=== PATIENT | male | born 1980 | race Caucasian/White ===

== ENCOUNTER 2017-12-23 15:38 | Emergency (ER) | payer MEDICAID ==
[~2017-12-23] VITALS: Ht 182.9 cm; Wt 68.0 kg
[~2017-12-23 15:38] MED LIST: BAC10T PO; CLON-527 PO; DES150T PO; GABA-341 PO; NORCO10T PO; ONDA4TAB6 PO; TRAM50TA2 PO
[2017-12-23 15:41] VITALS: BP 145/84
[2017-12-23] MEDS ORDERED: CLIN150C2 PO (15:57)
== END 2017-12-23 16:16 | disposition home or self-care (01) ==
LOC: ER 15:39
DX: K04.7 Periapical abscess without sinus (principal); F15.10 Other stimulant abuse, uncomplicated; G89.29 Other chronic pain; F17.210 Nicotine dependence, cigarettes, uncomplicated; Z87.442 Personal history of urinary calculi; Z56.0 Unemployment, unspecified; Z88.0 Allergy status to penicillin; Z79.899 Other long term (current) drug therapy
CPT/HCPCS: 99283

== ENCOUNTER 2018-06-05 21:19 | Emergency (ER) | payer MEDICAID, OTHER ==
[~2018-06-05] VITALS: Ht 182.9 cm; Wt 61.0 kg
[2018-06-05 21:31] VITALS: BP 135/83
[2018-06-05] MEDS ORDERED: epiNEPHrine inj 0.3 MG in BUPIVAcaine 0.5% inj/PF 29.7 ML SQ ONE (22:00)
[2018-06-05] MEDS ORDERED: HYDROcodone/acetaminophen 10/325mg tab PO ONE (22:00)
[2018-06-05] MEDS ORDERED: HYDR-565 PO (22:04)
[2018-06-05] MEDS ORDERED: CLIN150C2 PO (22:04)
[2018-06-05] MEDS ORDERED: BUPIVACAINE 0.5% SQ ONE (22:20)
[2018-06-05] MEDS ORDERED: bupivacaine 0.25%/epinephrine 1:200,000 inj (contains preserv. MDV) IJ ONE (22:20)
[2018-06-05] MEDS ORDERED: EPINEPHRINE SQ ONE (22:20)
== END 2018-06-05 23:23 | disposition home or self-care (01) ==
LOC: ER 21:35
DX: K04.7 Periapical abscess without sinus (principal); G89.29 Other chronic pain; M54.9 Dorsalgia, unspecified; F15.90 Other stimulant use, unspecified, uncomplicated; Z88.0 Allergy status to penicillin
CPT/HCPCS: 41800; 99284

== ENCOUNTER 2020-06-13 20:52 | Emergency (ER) | payer MEDICAID ==
[~2020-06-13] VITALS: Ht 182.9 cm; Wt 65.0 kg
[2020-06-13] MEDS ORDERED: LIDOcaine 1% W/epiNEPHrine 1:200,000 10ml vial IJ ONE (21:35)
[2020-06-13 22:10] VITALS: BP 121/78
== END 2020-06-13 22:12 | disposition home or self-care (01) ==
LOC: ER 20:52
DX: S61.240A Puncture wound with foreign body of right index finger without damage to nail, initial encounter (principal); G89.29 Other chronic pain; Z56.0 Unemployment, unspecified; Z88.0 Allergy status to penicillin; Z79.899 Other long term (current) drug therapy; X58.XXXA Exposure to other specified factors, initial encounter; Y93.89 Activity, other specified; Y92.89 Other specified places as the place of occurrence of the external cause; Y99.8 Other external cause status
CPT/HCPCS: 99281; 99284

== ENCOUNTER 2021-02-19 20:10 | Emergency (ER) | payer MEDICAID | END 2021-02-19 21:52 | disposition left against medical advice (07) | LOC: ER 20:10 | DX: K04.7 Periapical abscess without sinus (principal); Z53.21 Procedure and treatment not carried out due to patient leaving prior to being seen by health care provider ==

== ENCOUNTER 2024-11-03 15:23 | Emergency (ER) | payer MEDICAID ==
[~2024-11-03] VITALS: Ht 182.9 cm; Wt 75.0 kg
[2024-11-03 15:26] VITALS: TEMP 98.6
[2024-11-03] MEDS: SUMAtriptan succ. 6 MG/0.5ml vial SQ ONE (16:17)
[2024-11-03] MEDS: ketorolac trometh 15mg/ml vial 15 MG/ML ML IM ONE (16:18)
[2024-11-03 17:12] VITALS: BP 119/99; PULSE 98; RESP 18; O2SAT 98
== END 2024-11-03 17:05 | disposition home or self-care (01) ==
LOC: ER 15:24
DX: G43.909 Migraine, unspecified, not intractable, without status migrainosus (principal); Z87.442 Personal history of urinary calculi; Z88.0 Allergy status to penicillin; F15.90 Other stimulant use, unspecified, uncomplicated
CPT/HCPCS: 96372; 99284; J1885; J3030